=== PATIENT | female | born 1985 | race Caucasian/White ===

== ENCOUNTER 2022-09-21 21:15 | Emergency (ER) | payer OTHER ==
[2022-09-22] MEDS ORDERED: KETOROLAC 30 MG/ML INJ ONE (00:22)
--- NOTE | 2022-09-22 00:33 | ER ---
Nurse's Notes [facility] Name: Eneida Lucio Age: 36 yrs Sex: Female : 1985 Arrival Date: 09/21/2022 Time: 21:15 Bed 3 Private MD: Diagnosis: Pain in right shoulder Presentation: 09/21 21:56 Chief complaint: Patient states: i hurt my right shoulder about 2 years ago and have lg3 had issues ever since. i was at work and hurt it again yesterday while moving boxes. complaints of right shoulder pain. Coronavirus screen: Client denies travel out of the [place] in the last 14 days. At this time, the client does not indicate any symptoms associated with coronavirus-19. Ebola Screen: No symptoms or risks identified at this time. Initial Sepsis Screen: Does the patient meet any 2 criteria? No. Patient's initial sepsis screen is negative. Does the patient have a suspected source of infection? No. Patient's initial sepsis screen is negative. Risk Assessment: Do you want to hurt yourself or someone else? Patient reports no desire to harm self or others. Onset of symptoms was September 20, 2022. 21:56 Method Of Arrival: Ambulatory lg3 21:56 Acuity: FELIX 4 lg3 Triage Assessment: 21:59 General: Appears in no apparent distress. uncomfortable, Behavior is calm, cooperative. lg3 Pain: Complains of pain in right shoulder. EENT: No deficits noted. No signs and/or symptoms were reported regarding the EENT system. Neuro: No deficits noted. Garcia Agitation-Sedation Scale (RASS): 0 - Alert and Calm Level of Consciousness is awake, alert, obeys commands, Oriented to person, place, time, situation. Cardiovascular: No deficits noted. Denies chest pain, shortness of breath, Capillary refill < 3 seconds Clubbing of nail beds is absent JVD is absent Patient's skin is warm and dry. Respiratory: No deficits noted. Airway is patent Respiratory effort is even, unlabored, Respiratory pattern is regular, symmetrical. GI: No deficits noted. No signs and/or symptoms were reported involving the gastrointestinal system. : No deficits noted. No signs and/or symptoms were reported regarding the genitourinary system. Derm: No deficits noted. No signs and/or symptoms reported regarding the dermatologic system. Skin is intact, is healthy with good turgor, Skin is dry, Skin is normal, Skin temperature is warm. Musculoskeletal: Circulation, motion, and sensation intact. Range of motion: limited in right shoulder Reports pain in right shoulder. 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 - Social history:: Smoking status: Patient denies any tobacco usage or history of. Patient/guardian denies using alcohol, street drugs. Screenin/02 00:43 [facility] ED Fall Risk Assessment (Adult) History of falling in the last 3 months, jb4 including since admission No falls in past 3 months (0 pts) Confusion or Disorientation No (0 pts) Score/Fall Risk Level 0 - 2 = Low Risk Oriented to surroundings, Maintained a safe environment. Abuse screen: Denies threats or abuse. Nutritional screening: No deficits noted. Tuberculosis screening: No symptoms or risk factors identified. Assessment: 00:43 General: Appears in no apparent distress. comfortable, Behavior is calm, cooperative, jb4 appropriate for age. Pain: Complains of pain in right shoulder Pain does not radiate. Pain currently is 6 out of 10 on a pain scale. Neuro: Level of Consciousness is awake, alert, obeys commands, Oriented to person, place, time, situation. Cardiovascular: Patient's skin is warm and dry. Respiratory: Airway is patent Respiratory effort is even, unlabored, Respiratory pattern is regular, symmetrical. GI: No signs and/or symptoms were reported involving the gastrointestinal system. : No signs and/or symptoms were reported regarding the genitourinary system. EENT: No signs and/or symptoms were reported regarding the EENT system. Derm: Skin is intact, Skin is pink, warm \T\ dry. Musculoskeletal: Circulation, motion, and sensation intact. Range of motion: intact in all extremities. Vital Signs: 09/21 21:56 BP 121 / 88; Pulse 64; Resp 17 S; Temp 98.8(O); Pulse Ox 100% ; Weight 88.9 kg (R); lg3 Height 5 ft. 6 in. (R); 21:56 Body Mass Index 31.63 (88.90 kg, 167.64 cm) lg3 ED Course: 21:22 Patient arrived in ED. jj6 21:54 Brijesh España PA is PHCP. cp 21:54 Brijesh Henriquez MD is Attending Physician. cp 21:59 Triage completed. lg3 21:59 Arm band placed on left wrist. lg3 23:25 Brijesh España PA is PHCP. cp 23:25 Brijesh Henriquez MD is Attending Physician. cp 09/22 00:18 Blaze Dumont, RN is Primary Nurse. jb4 00:32 Nathan Parada MD is Referral Physician. cp 00:43 Patient has correct armband on for positive identification. Bed in low position. Call jb4 light in reach. Side rails up X 1. 00:43 No provider procedures requiring assistance completed. Patient did not have IV access jb4 during this emergency room visit. 00:50 XRAY Shoulder RIGHT 2 view In Process Unspecified. EDMS Administered Medications: 00:18 Drug: Ketorolac IM 30 mg Route: IM; Site: right gluteus; jb4 Medication: 00:43 VIS not applicable for this client. jb4 Outcome: 00:33 Discharge ordered by . cp 00:43 Discharged to home ambulatory. jb4 00:43 Condition: stable 00:43 Discharge instructions given to patient, Instructed on discharge instructions, follow up and referral plans. no drinking with medication, no driving heavy equipment, medication usage, Demonstrated understanding of instructions, follow-up care, medications, Prescriptions given X 2. 00:45 Patient left the ED. jb4 Signatures: Dispatcher [employer] EDMS Brijesh España PA PA cp Blaze Dumont, RN RN jb4 Cheyenne Leroy, KARYNA RN lg3 Shabnam Rod jj6 Corrections: (The following items were deleted from the chart) 09/21 22:00 21:59 Allergies: No Known Allergies; lg3 lg3
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
[2022-09-22 02:01] VITALS: BP 121/88; TEMP 98.8; O2SAT 100
--- NOTE | 2022-09-22 12:26 | RAD REPORT ---
EXAM DESCRIPTION: RAD - Shoulder Right 2 View - 09/22/2022 12:48 am CLINICAL HISTORY: The patient is 36 years old and is Female; PAIN TECHNIQUE: Frontal internal and external rotation views of the right shoulder. . COMPARISON: No relevant prior studies available. FINDINGS: BONES/JOINTS: Unremarkable. No acute fracture. No dislocation. SOFT TISSUES: Unremarkable. IMPRESSION: Unremarkable right shoulder x-rays. Electronically signed by: Jaydon Rocha MD 09/22/2022 1:26 AM CDT Due to temporary technical issues with the PACS/Fluency reporting system, reports are being signed by the in house radiologist without review as a courtesy to ensure prompt reporting. The interpreting r adiologist is fully responsible for the content of the report.
== END 2022-09-22 00:45 | disposition home or self-care (01) ==
LOC: ER 21:15
DX: M25.511 Pain in right shoulder (principal); Z88.1 Allergy status to other antibiotic agents
CPT/HCPCS: 96372; 99284

== ENCOUNTER 2022-11-28 08:59 | Emergency (ER) | payer OTHER ==
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
[2022-11-28 09:55] VITALS: BP 122/86; TEMP 98.1; O2SAT 98
== END 2022-11-28 09:50 | disposition home or self-care (01) ==
LOC: ER 08:59
PROC: 0W930ZZ Drainage of Oral Cavity and Throat, Open Approach (ICD-10-PCS; principal; 2022-11-28)
DX: K12.2 Cellulitis and abscess of mouth (principal); Z88.1 Allergy status to other antibiotic agents
CPT/HCPCS: 99283

== ENCOUNTER 2023-12-16 12:42 | Emergency (ER) | payer OTHER, SELFPAY ==
[2023-12-16 15:46] LABS: Absolute Eosinophils 0.1 K/uL (0-0.5); Absolute Lymphocytes (CBC) 1.7 K/uL (0.7-4.9); Absolute Monocytes 0.5 K/uL (0.1-1.3); Absolute Neutrophil 4.7 K/uL (1.8-8.0); Basophils % 0.5 % (0-1.3); Eosinophils % 1.6 % (0-4.4); Hematocrit 43.9 % (36.0-45.0); Hemoglobin 14.6 g/dL (12.0-15.0); Lymphocytes % 24.2 % (15.3-44.8); MCHC 33.2 g/dL (32.0-36.0); MCV 87.4 fL (80-100); Monocytes % 7.6 % (3.3-12.3); Neutrophils % 66.1 % (41.7-73.7); Nucleated Red Blood Cells % 0.2 % (0-0); Platelets 214 thou/uL (152-406); RBC Red Blood Cell Count 5.02 M/uL (3.86-4.86)
[2023-12-16 15:51] LABS: PT Prothrombin Time 11.2 SECONDS (9.4-12.5); PTT, Activated Partial Thromb 35.3 SECONDS (24.3-36.9)
[2023-12-16 16:01] LABS: Albumin 4.6 g/dL (3.4-5.0); Albumin/Globulin Ratio 1.1 (1.1-1.8); Anion Gap 10.6 mEq/L (5.0-15.0); Bilirubin Total 0.4 mg/dL (0.2-1.0); Globulin 4.1 g/dL (2.3-3.5); Potassium 3.6 mEq/L (3.5-5.1); Protein, Total 8.7 g/dL (6.4-8.2)
[2023-12-16] MEDS ORDERED: dexAMETHasone 10 MG/ML VIAL ONE (17:12)
--- NOTE | 2023-12-16 17:39 | RAD REPORT ---
EXAM DESCRIPTION: CT - CTFBWCON CLINICAL HISTORY: right jaw swelling COMPARISON: No comparisonsNo comparisons TECHNIQUE: Axial thin cut CT images of the face were obtained following intravenous administration o f iodinated contrast, with sagittal and coronal reconstruction images. All CT scans are performed using dose optimization technique as appropriate and may include automated exposure control or mA/KV adjustment according to patient size. FINDINGS: Mild soft tissue swelling along the right buccal mucosal space. Mild overlying buckled/pre malar subcutaneous fat stranding. No appreciable subperiosteal abscess. Scattered carious changes. Small periapical collections along the right maxillary first premolar and posterior-most molar roots. No acute facial bone fracture is seen.The mandible is intact. The globes and orbital contents are grossly unremarkable.The paranasal sinuses and mastoids are clear . IMPRESSION: Small periapical collections along the roots of the right maxillary first premolar and p osterior most molar. Overlying soft tissue swelling involving the buccal mucosal space and subcutaneous soft tissues, sugg esting cellulitis.
[2023-12-16] MEDS ORDERED: CIPROFLOXACIN 400mg IV 0 MG/0 ML BAG IV ONE (18:19)
[2023-12-16] MEDS ORDERED: CLINDAMYCIN 900MG/D5W 900 MG/50 ML IVPB IV ONE (18:20)
--- NOTE | 2023-12-16 19:03 | EDPHYS ---
Physician Documentation [facility] Name: Eneida Lucio Age: 38 yrs Sex: Female : 1985 Arrival Date: 12/16/2023 Time: 12:42 Bed 20 Private MD: ED Physician Ree Rosa HPI: 12/15 15:00 This 38 yrs old Female presents to ER via Ambulatory with complaints of Facial Swelling.cp 15:00 The patient or guardian reports left side facial swelling. cp 15:00 Onset: The symptoms/episode began/occurred this past Sunday. cp 15:00 Associated signs and symptoms: Pertinent negatives: headache, neck pain, fever, tooth cp pain. Severity of symptoms: in the emergency department the symptoms are actually worse, reports she has been taking prescribed Clindamycin for past 2 days. 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 - Infectious Disease History:: Denies. - Social history:: Smoking status: Patient denies any tobacco usage or history of. ROS: 15:05 Constitutional: Negative for body aches, chills, fever, poor PO intake, cp 15:05 ENT: Negative for drainage from ear(s), ear pain, dental pain, cp 15:05 Cardiovascular: Negative for chest pain, 15:05 Respiratory: Negative for cough, shortness of breath, 15:05 Abdomen/GI: Negative for abdominal pain, vomiting, diarrhea, constipation, 15:05 Skin: Positive for swelling left side of face, 15:05 Neuro: Negative for altered mental status, dizziness, headache, weakness, 15:05 All other systems are negative, Exam: 15:10 Constitutional: The patient appears in no acute distress, alert, awake, non-toxic, well cp developed, well nourished, 15:10 Head/face: Noted is swelling, that is moderate, of the right jaw, of the mild swelling cp extending to left lateral nose and infraorbital area of left eye, 15:10 Eyes: Pupils: equal, round, and reactive to light and accomodation, Extraocular movements: intact throughout, Conjunctiva: normal, no exudate, no injection, Sclera: no appreciated abnormality, Lids and lashes: appear normal, bilaterally, 15:10 ENT: External ear(s): are unremarkable, Ear canal(s): are normal, clear, TM's: bulging, bilaterally, Nose: External nose: no obvious acute abnormality, Mouth: Lips: moist, Oral mucosa: pink and intact, moist, Posterior pharynx: Airway: no evidence of obstruction, patent, swelling, is not appreciated, erythema, is not appreciated, Dental exam: dental caries, specifically in the right lower jaw, fractured teeth are noted, specifically the lower right second molar (#31), gum swelling, not appreciated, pain, is not appreciated, Voice: is normal, 15:10 Neck: ROM/movement: is normal, is supple, without pain, no range of motions cp limitations, no nuchal rigidity, 15:10 Chest/axilla: Inspection: normal, 15:10 Cardiovascular: Rate: normal, Rhythm: regular, 15:10 Respiratory: the patient does not display signs of respiratory distress, Respirations: normal, no use of accessory muscles, no retractions, labored breathing, is not present, Breath sounds: are clear throughout, no decreased breath sounds, no stridor, no wheezing, 15:10 Abdomen/GI: Inspection: abdomen appears normal, 15:10 Skin: no rash present. 15:10 Neuro: Orientation: to person, place \T\ time. Mentation: is normal, Motor: moves all fours, strength is normal, Sensation: is normal, Vital Signs: 13:15 BP 128 / 82; Pulse 87; Resp 18 S; Temp 97.8(TE); Pulse Ox 99% on R/A; Weight 89.36 kg aa5 (R); Height 5 ft. 5 in. (R); 16:00 BP 118 / 75; Pulse 78; Resp 16; Pulse Ox 100% on R/A; me1 17:00 BP 113 / 77; Pulse 78; Resp 19; Pulse Ox 100% on R/A; me1 18:00 BP 119 / 85; Pulse 82; Resp 18; Pulse Ox 100% on R/A; me1 18:00 BP 125 / 89; Pulse 95; Resp 16; Temp 98.4; Pulse Ox 100% on R/A; me1 13:15 Body Mass Index 32.78 (89.36 kg, 165.1 cm) aa5 MDM: 13:03 Patient medically screened. 19:02 Data reviewed: vital signs, nurses notes, lab test result(s), radiologic studies, CT cp scan. 19:02 Differential diagnosis: sepsis, dental abscess, cellulitis. I considered the following cp discharge prescriptions or medication management in the emergency department Medications were administered in the Emergency Department. See MAR. Counseling: I had a detailed discussion with the patient and/or guardian regarding the historical points, exam findings, and any diagnostic results supporting the discharge/admit diagnosis, lab results, radiology results. Refusal of service: The patient/guardian displays adequate decision making capability and despite a detailed discussion of alternatives, benefits, risks, and consequences refuses: Admission to the hospital for further work-up and treatment, or transfer for maxillary facial consult at this time due to issue with children. 12/15 14:53 Order name: Blood Culture Adult (2) 12/15 14:53 Order name: CBC with Diff; Complete Time: 16:42 12/15 14:53 Order name: CMP; Complete Time: 16:42 12/15 14:53 Order name: Lactate w/ 2H reflex if indic.; Complete Time: 16:42 12/15 14:53 Order name: Protime (+inr); Complete Time: 16:42 12/15 14:53 Order name: Ptt, Activated; Complete Time: 16:42 12/15 14:53 Order name: CT Facial Bones W/ Con \T\ Mpr; Complete Time: 18:06 12/15 18:06 Interpretation: Report reviewed. 12/15 14:53 Order name: EKG; Complete Time: 14:53 12/15 14:53 Order name: Accucheck; Complete Time: 15:43 12/15 14:53 Order name: Cardiac monitoring; Complete Time: 16:12 12/15 14:53 Order name: EKG - Nurse/Tech; Complete Time: 16:12 12/15 14:53 Order name: IV Saline Lock - Large Bore; Complete Time: 15:43 12/15 14:53 Order name: Labs collected and sent; Complete Time: 15:43 12/15 14:53 Order name: O2 Per Protocol; Complete Time: 15:43 cp 12/15 14:53 Order name: O2 Sat Monitoring; Complete Time: 15:43 cp 12/15 14:53 Order name: Vital Signs; Complete Time: 15:43 cp Administered Medications: 17:15 Drug: Dexamethasone IVP 10 mg IVP once; (not to exceed 40 mg) Route: IVP; Site: right me1 antecubital; 18:10 Follow up: Response: No adverse reaction me1 18:24 Drug: Clindamycin IVPB 900 mg IVPB once over 30 mins; (mix in 50 mL) Route: IVPB; me1 Infused Over: 30 mins; Site: right antecubital; 18:49 Follow up: Response: No adverse reaction; IV Status: Completed infusion; IV Intake: [id number] 19:22 Drug: metroNIDAZOLE PO 500 mg PO once Route: PO; me1 19:22 Follow up: Response: No adverse reaction me1 Disposition Summary: 12/16/23 19:03 Discharge Ordered Notes: Location: Home cp Problem: new cp Symptoms: have improved cp Condition: Stable cp Diagnosis - Cellulitis of face cp - Disorder of teeth and supporting structures, unspecified - multiple periapical cp abscess teeth of right lower jaw Followup: cp - With: Elliot Willis DDS - When: 2 - 3 days - Reason: Recheck today's complaints Discharge Instructions: - Discharge Summary Sheet cp - Cellulitis, Adult cp - Dental Abscess cp Forms: - Medication Reconciliation Form cp - Antibiotic Education cp - Prescription Opioid Use cp - Patient Portal Instructions cp - Leadership Thank You Letter cp Prescriptions: - Ibuprofen 800 mg Oral Tablet - take 1 tablet ORAL route every 8 hours As needed take with food; 30 tablet; cp Refills: 0, Product Selection Permitted - Metronidazole 500 mg Oral Tablet - take 1 tablet ORAL route every 8 hours; 30 tablet; Refills: 0, Product cp Selection Permitted Signatures: Dispatcher [employer] Susan Mayer RN RN aa5 Brijesh España PA PA cp Pao Godoy RN RN me1 Corrections: (The following items were deleted from the chart) 14:54 14:53 BLOOD CULTURE*+BA.LAB.BRZ ordered. EDMS EDMS 14:54 14:53 CBC+H.LAB.BRZ ordered. EDMS EDMS 14:54 14:53 COMPREHENSIVE METABOLIC PANEL+C.LAB.BRZ ordered. EDMS EDMS 14:54 14:53 LACTATE+C.LAB.BRZ ordered. EDMS EDMS 14:54 14:53 PROTIME (+INR)+COAG.LAB.BRZ ordered. EDMS EDMS 14:54 14:53 PTT, ACTIVATED+COAG.LAB.BRZ ordered. EDMS EDMS
--- NOTE | 2023-12-16 19:03 | ER ---
Nurse's Notes [facility] Name: Eneida Lucio Age: 38 yrs Sex: Female : 1985 Arrival Date: 12/16/2023 Time: 12:42 Bed 20 Private MD: Diagnosis: Cellulitis of face;Disorder of teeth and supporting structures, unspecified-multiple periapical abscess teeth of right lower jaw Presentation: 12/15 13:15 Chief complaint: Patient states: "I was diagnosed with cellulitis to my face on Sunday aa5 and I've been taking Clindamycin but the swelling and the redness is worse". Coronavirus screen: At this time, the client does not indicate any symptoms associated with coronavirus-19. Ebola Screen: Patient denies travel to an Ebola-affected area in the 21 days before illness onset. Initial Sepsis Screen: Does the patient meet any 2 criteria? No. Patient's initial sepsis screen is negative. Does the patient have a suspected source of infection? No. Patient's initial sepsis screen is negative. Risk Assessment: Do you want to hurt yourself or someone else? Patient reports no desire to harm self or others. Onset of symptoms was November 2023. 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 - Infectious Disease History:: Denies. - Social history:: Smoking status: Patient denies any tobacco usage or history of. Screenin:43 [facility] ED Fall Risk Assessment (Adult) History of falling in the last 3 months, me1 including since admission No falls in past 3 months (0 pts) Confusion or Disorientation No (0 pts) Intoxicated or Sedated No (0 pts) Impaired Gait No (0 pts) Mobility Assist Device Used No (0 pt) Altered Elimination No (0 pt) Score/Fall Risk Level 0 - 2 = Low Risk Maintained a safe environment, Provided non-skid footwear, Hourly rounding (assess needs \\T\\ fall precautionary measures) done. Abuse screen: Denies threats or abuse. Nutritional screening: No deficits noted. Tuberculosis screening: No symptoms or risk factors identified. Assessment: 15:43 General: Appears uncomfortable, well groomed, well developed, well nourished, Behavior me1 is calm, cooperative, appropriate for age, Reports "I was diagnosed with cellulitis to my face on Sunday and I've been taking Clindamycin but the swelling and the redness is worse". Pain: Complains of pain in right cheek and right jaw Pain does not radiate. Pain currently is 5 out of 10 on a pain scale. Quality of pain is described as throbbing, Pain began gradually, 2-3 days ago. Is continuous. Neuro: Level of Consciousness is awake, alert, obeys commands, Oriented to person, place, time, situation, Appropriate for age. Cardiovascular: Patient's skin is warm and dry. Respiratory: Airway is patent Trachea midline Respiratory effort is even, unlabored, Respiratory pattern is regular, symmetrical. GI: No signs and/or symptoms were reported involving the gastrointestinal system. : No signs and/or symptoms were reported regarding the genitourinary system. EENT: No signs and/or symptoms were reported regarding the EENT system. Derm: Skin is intact, is healthy with good turgor, Skin is pink, warm \\T\\ dry. edema to right face. Musculoskeletal: No signs and/or symptoms reported regarding the musculoskeletal system. Vital Signs: 13:15 BP 128 / 82; Pulse 87; Resp 18 S; Temp 97.8(TE); Pulse Ox 99% on R/A; Weight 89.36 kg aa5 (R); Height 5 ft. 5 in. (R); 16:00 BP 118 / 75; Pulse 78; Resp 16; Pulse Ox 100% on R/A; me1 17:00 BP 113 / 77; Pulse 78; Resp 19; Pulse Ox 100% on R/A; me1 18:00 BP 119 / 85; Pulse 82; Resp 18; Pulse Ox 100% on R/A; me1 18:00 BP 125 / 89; Pulse 95; Resp 16; Temp 98.4; Pulse Ox 100% on R/A; me1 13:15 Body Mass Index 32.78 (89.36 kg, 165.1 cm) aa5 ED Course: 12:45 Patient arrived in ED. ra3 13:03 Brijesh España PA is PHCP. cp 13:03 Ree Rosa MD is Attending Physician. cp 13:15 Arm band placed on. aa5 13:16 Triage completed. aa5 15:05 Pao Godoy, RN is Primary Nurse. me1 15:12 First set of blood cultures drawn by me. cc6 15:19 Initial lab(s) drawn, by me, sent to lab. Inserted saline lock: 20 gauge in right cc6 antecubital area, using aseptic technique. Blood collected. Flushed with 10 mL NS. 15:43 Patient has correct armband on for positive identification. Bed in low position. Call me1 light in reach. Side rails up X2. Provided Education on: POC. Verbalized understanding. . Client placed on continuous cardiac and pulse oximetry monitoring. NIBP monitoring applied. child care counselor on. Pulse ox on. NIBP on. 15:43 CBC with Diff Sent. me1 15:43 CMP Sent. me1 15:43 Lactate w/ 2H reflex if indic. Sent. me1 15:43 Protime (+inr) Sent. me1 15:43 Ptt, Activated Sent. me1 15:43 No provider procedures requiring assistance completed. me1 15:52 Second set of blood cultures drawn by me. cc6 16:12 EKG done, by ED staff, reviewed by Brijesh KAUFFMAN. cc6 16:40 CT Facial Bones W/ Con \\T\\ Mpr In Process Unspecified. EDMS 19:02 Elliot Willis DDS is Referral Physician. cp 19:24 IV discontinued, intact, bleeding controlled, No redness/swelling at site. Pressure me1 dressing applied. Administered Medications: 17:15 Drug: Dexamethasone IVP 10 mg IVP once; (not to exceed 40 mg) Route: IVP; Site: right me1 antecubital; 18:10 Follow up: Response: No adverse reaction me1 18:24 Drug: Clindamycin IVPB 900 mg IVPB once over 30 mins; (mix in 50 mL) Route: IVPB; me1 Infused Over: 30 mins; Site: right antecubital; 18:49 Follow up: Response: No adverse reaction; IV Status: Completed infusion; IV Intake: [id number] 19:22 Drug: metroNIDAZOLE PO 500 mg PO once Route: PO; me1 19:22 Follow up: Response: No adverse reaction me1 Medication: 15:43 VIS not applicable for this client. me1 Intake: 18:49 IV: 50ml; Total: 50ml. me1 Outcome: 19:03 Discharge ordered by MD. cp 19:24 Discharged to home ambulatory, mt1 19:24 Condition: stable 19:24 Discharge instructions given to patient, Instructed on discharge instructions, follow up and referral plans. medication usage, Demonstrated understanding of instructions, follow-up care, medications, Prescriptions given X 2, 19:24 Patient left the ED. me1 Signatures: Dispatcher [employer] EDMS Susan Almodovar RN RN aa5 Brijesh España PA PA Pao Lyon RN RN me1 Kelly Álvarez 3 Lucy Gauthier cc6 Corrections: (The following items were deleted from the chart) 15:43 13:15 Chief complaint: Patient states: "I was diagnosed with cellulitis to my face on me1 Sunday and I've been taking Clindamycin but the swelling and the redness is worse" aa5
[2023-12-16] MEDS ORDERED: metroNIDAZOLE 500 MG TABLET ONE (19:15)
[2023-12-16 19:52] VITALS: O2SAT 100
[2023-12-16 19:56] VITALS: BP 125/89; TEMP 98.4
[2023-12-16] MEDS ORDERED: ACETAMINOPHEN 325 MG TABLET PO PRN (21:44)
[2023-12-16] MEDS ORDERED: ONDANSETRON 4 MG/2 ML VIAL IV PRN (21:44)
--- NOTE | 2023-12-16 21:44 | P.HP ---
Certification for Inpatient Patient admitted to: Inpatient With expected LOS: >2 Midnights Practitioner: I am a practitioner with admitting privileges, knowledge of patient current condition, hospital course, and medical plan of care. Services: Services provided to patient in accordance with Admission requirements found in Title 42 Section 412.3 of the Code of Federal Regulations Patient History Date of Service: 12/17/23 Reason for admission: facial cellulitis History of Present Illness: 38 yo - Past Medical/Surgical History Past Medical History: Reviewed- Non-Contributory Past Surgical History: Reviewed- Non-Contributory - Family History Family History: Reviewed- Non-Contributory - Social History Smoking Status: Never smoker Physical Examination - Vital Signs Temperature: 98.4 F Blood Pressure: 125/89 Pulse: 95 Respirations: 16 - Physical Exam General: Alert, In no apparent distress, Oriented x3 - Studies Laboratory Data (last 24 hrs) 12/16/23 12/16/23 12/16/23 15:12 15:12 15:12 WBC 7.20 Hgb 14.6 Hct 43.9 Plt Count 214 PT 11.2 INR 1.00 APTT 35.3 Sodium 138 Potassium 3.6 BUN 14 Creatinine 0.97 Glucose 95 Total Bilirubin 0.4 AST 16 ALT 30 Alkaline Phosphatase 91 Assessment and Plan - Advance Directives Does patient have a Living Will: No Does patient have a Durable POA for Healthcare: No
[2023-12-17] MEDS ORDERED: ENOXAPARIN 40 MG/0.4 ML SQ SCH ×2 (09:00)
--- NOTE | 2023-12-17 10:00 | EKG ---
Test Date: 2023-12-16 Test Time: 16:06:51 Sales Correspondence Clerk: SALLY MEASUREMENT RESULTS: Intervals: Rate: 83 IA: 142 QRSD: 94 QT: 390 QTc: 458 Reading: P: 59 IA: 142 QRS: 46 T: 20 INTERPRETIVE STATEMENTS: Normal sinus rhythm ST & T wave abnormality, consider inferior ischemia Abnormal ECG No previous ECG available for comparison Electronically Signed On 12-17-23 10:00:08 CDT by Marc Cabello
--- NOTE | 2023-12-18 12:44 | EKG ---
Test Date: 2023-12-16 Test Time: 16:07:33 Ladies Attendant: SALLY MEASUREMENT RESULTS: Intervals: Rate: 71 CT: 142 QRSD: 96 QT: 398 QTc: 432 [place]: P: 59 CT: 142 QRS: 43 T: 20 INTERPRETIVE STATEMENTS: Normal sinus rhythm Normal ECG Compared to ECG 12/16/2023 16:06:51 ST (T wave) deviation no longer present Possible ischemia no longer present Electronically Signed On 12-18-23 12:41:45 CDT by Marc Cabello
== END 2023-12-16 19:24 | disposition home or self-care (01) ==
LOC: ER 12:42
DX: L03.211 Cellulitis of face (principal); K04.7 Periapical abscess without sinus
CPT/HCPCS: 36415; 70487; 76377; 80053; 83605; 85025; 85610; 85730; 87040; 93005; 96365; 96375; 99285; J0744; J1100; Q9967

== ENCOUNTER 2023-12-16 20:37 | Inpatient (IN) | payer OTHER, SELFPAY ==
--- NOTE | 2023-12-16 21:42 | EDPHYS ---
Physician Documentation [facility] Name: Eneida Lucio Age: 38 yrs Sex: Female : 1985 Arrival Date: 12/16/2023 Time: 20:37 Bed 15 Private MD: ED Physician Angel Edwards HPI: 12/15 21:25 This 38 yrs old Female presents to ER via Ambulatory with complaints of Toothache. rt 21:25 Patient presents to the ED with a right-sided toothache, right-sided facial swelling. rt States that the swelling has been worsening despite being on oral clindamycin for several days. Was seen earlier today, told that she needed transfer for periapical abscess. Denies other acute complaints at this time, symptoms are moderate in severity, no other aggravating elevating factors.. 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 - Infectious Disease History:: Denies. - Social history:: Smoking status: Patient denies any tobacco usage or history of. - Family history:: not pertinent. ROS: 21:25 Constitutional: Negative for fever, chills, and weight loss, Cardiovascular: Negative rt for chest pain, palpitations, and edema, Respiratory: Negative for shortness of breath, cough, wheezing, and pleuritic chest pain, Abdomen/GI: Negative for abdominal pain, nausea, vomiting, diarrhea, and constipation, MS/Extremity: Negative for injury and deformity, Skin: Negative for injury, rash, and discoloration, 21:25 ENT: Positive for Dental pain, facial swelling, Exam: 21:25 Constitutional: This is a well developed, well nourished patient who is awake, alert, rt and in no acute distress. Chest/axilla: Normal chest wall appearance and motion. Nontender with no deformity. No lesions are appreciated. Cardiovascular: Regular rate and rhythm with a normal S1 and S2. No gallops, murmurs, or rubs. Normal PMI, no JVD. No pulse deficits. Respiratory: Lungs have equal breath sounds bilaterally, clear to auscultation and percussion. No rales, rhonchi or wheezes noted. No increased work of breathing, no retractions or nasal flaring. Abdomen/GI: Soft, non-tender, with normal bowel sounds. No distension or tympany. No guarding or rebound. No evidence of tenderness throughout. 21:25 ENT: Right-sided facial swelling, multiple dental caries noted, no drainable abscess. Vital Signs: 20:51 Pulse 99; Resp 18; Temp 97; Pulse Ox 99% ; Weight 89.36 kg; Height 5 ft. 5 in. ; Pain bm8 3/10; 23:15 BP 124 / 71; Pulse 88; Resp 16; Pulse Ox 99% on R/A; pc2 20:51 Body Mass Index 32.78 (89.36 kg, 165.1 cm) bm8 20:51 Pain Scale: Adult bm8 MDM: 21:07 Patient medically screened. rt 21:42 Differential diagnosis: dental caries, dental abscess, Facial cellulitis. Data rt reviewed: vital signs, nurses notes, lab test result(s), radiologic studies. Consideration of Admission/Observation Patient was admitted/placed on observation. I considered the following discharge prescriptions or medication management in the emergency department Medications were administered in the Emergency Department. See MAR. Counseling: I had a detailed discussion with the patient and/or guardian regarding the historical points, exam findings, and any diagnostic results supporting the discharge/admit diagnosis, lab results, radiology results, the need for further work-up and treatment in the hospital. 12/15 22:45 Order name: Urinalysis w/ reflexes EDMS Administered Medications: No medications were administered Disposition Summary: 12/16/23 21:42 Hospitalization Ordered Notes: Hospitalization Status: Observation rt Provider: Osito Isabel rt Condition: Stable rt Problem: an ongoing problem rt Symptoms: are unchanged rt Bed/Room Type: Standard rt Location: Telemetry/MedSurg (observation)(12/17/23 16:09) ap3 Room Assignment: 207(12/17/23 16:09) ap3 Diagnosis - Facial cellulitis, failed outpatient therapy rt Forms: - Medication Reconciliation Form rt - SBAR form rt - Leadership Thank You Letter rt Signatures: Dispatcher [facility] Aida Zapata Amanda RN RN ap3 Sabina Arango RN RN vc1 Angel Edwards MD MD rt Monster Pittman RN RN bm8 Corrections: (The following items were deleted from the chart) 23:10 21:42 rt sp 23:58 21:42 Telemetry/MedSurg (observation) rt vc1 58 23:10 [facility] sp vc1 12/16 16:09 12/15 23:58 [facility] ER HOLD vc1 ap3 12/16 16:09 12/15 23:58 ERHOLD- vc1 ap3
--- NOTE | 2023-12-16 21:42 | ER ---
Nurse's Notes [facility] Name: Eneida Lucio Age: 38 yrs Sex: Female : 1985 Arrival Date: 12/16/2023 Time: 20:37 Bed 15 Private MD: Diagnosis: Facial cellulitis, failed outpatient therapy Presentation: 12/15 20:51 Chief complaint: Patient states: i was here earlier to day with dental abscess but i bm8 had to go home and make sure my kids were taken of care because i was told they were going to trasnfer me somewhere. Coronavirus screen: At this time, the client does not indicate any symptoms associated with coronavirus-19. Ebola Screen: Patient negative for fever greater than or equal to 101.5 degrees Fahrenheit, and additional compatible Ebola Virus Disease symptoms Patient denies exposure to infectious person. Patient denies travel to an Ebola-affected area in the 21 days before illness onset. No symptoms or risks identified at this time. Initial Sepsis Screen: Does the patient meet any 2 criteria? No. Patient's initial sepsis screen is negative. Does the patient have a suspected source of infection? No. Patient's initial sepsis screen is negative. Risk Assessment: Do you want to hurt yourself or someone else? Patient reports no desire to harm self or others. Onset of symptoms was December 14, 2023. 20:51 Method Of Arrival: Ambulatory bm8 20:51 Acuity: FELIX 3 bm8 Triage Assessment: 20:53 General: Appears in no apparent distress. comfortable, Behavior is calm, cooperative, bm8 appropriate for age. Pain: Complains of pain in face Pain currently is 3 out of 10 on a pain scale. Quality of pain is described as aching, crampy. EENT: Poor dentition noted. Reports pain in right cheek, left cheek, right jaw and left jaw swelling to bilateral face noted. Neuro: No deficits noted. Level of Consciousness is awake, alert, obeys commands, Oriented to person, place, time, situation, Appropriate for age. Cardiovascular: No deficits noted. Respiratory: No deficits noted. GI: No signs and/or symptoms were reported involving the gastrointestinal system. : No signs and/or symptoms were reported regarding the genitourinary system. Derm: No signs and/or symptoms reported regarding the dermatologic system. Musculoskeletal: No signs and/or symptoms reported regarding the musculoskeletal system. 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 - Infectious Disease History:: Denies. - Social history:: Smoking status: Patient denies any tobacco usage or history of. - Family history:: not pertinent. Screenin:06 [facility] ED Fall Risk Assessment (Adult) History of falling in the last 3 months, pc2 including since admission No falls in past 3 months (0 pts) Confusion or Disorientation No (0 pts) Intoxicated or Sedated No (0 pts) Impaired Gait No (0 pts) Mobility Assist Device Used No (0 pt) Altered Elimination No (0 pt) Score/Fall Risk Level 0 - 2 = Low Risk Oriented to surroundings, Maintained a safe environment, Hourly rounding (assess needs \\T\\ fall precautionary measures) done. Abuse screen: Denies threats or abuse. Denies injuries from another. Nutritional screening: No deficits noted. Tuberculosis screening: No symptoms or risk factors identified. Assessment: 21:23 General: Appears in no apparent distress. uncomfortable, well groomed, well developed, pc2 Behavior is calm, cooperative, appropriate for age. Pain: Complains of pain in right jaw Pain currently is 5 out of 10 on a pain scale. Quality of pain is described as gnawing, Pain began 2 days ago. Neuro: Level of Consciousness is awake, alert, obeys commands, Oriented to person, place, time, situation, Appropriate for age. Cardiovascular: Capillary refill < 3 seconds Patient's skin is warm and dry. Respiratory: Airway is patent Trachea midline Respiratory effort is even, unlabored, Respiratory pattern is regular, symmetrical, Breath sounds are clear Denies shortness of breath pain with respiration. GI: No signs and/or symptoms were reported involving the gastrointestinal system. : No signs and/or symptoms were reported regarding the genitourinary system. EENT: Oral mucosa is moist. reports diagnosed with multiple dental abscesses at the root on the right side. Derm: Skin is pink, warm \\T\\ dry. Musculoskeletal: No signs and/or symptoms reported regarding the musculoskeletal system. 22:30 Reassessment: No changes from previously documented assessment. Patient and/or family pc2 updated on plan of care and expected duration. Pain level reassessed. 23:32 Reassessment: Patient appears in no apparent distress at this time. Patient and/or pc2 family updated on plan of care and expected duration. Pain level reassessed. Patient is alert, oriented x 3, equal unlabored respirations, skin warm/dry/pink. Vital Signs: 20:51 Pulse 99; Resp 18; Temp 97; Pulse Ox 99% ; Weight 89.36 kg; Height 5 ft. 5 in. ; Pain bm8 3/10; 23:15 BP 124 / 71; Pulse 88; Resp 16; Pulse Ox 99% on R/A; pc2 20:51 Body Mass Index 32.78 (89.36 kg, 165.1 cm) bm8 20:51 Pain Scale: Adult bm8 ED Course: 20:40 Patient arrived in ED. jj6 20:42 Angel Edwards MD is Attending Physician. rt 20:53 Triage completed. bm8 20:53 Arm band placed on right wrist. bm8 21:06 Lupis Machado, RN is Primary Nurse. pc2 21:07 Patient has correct armband on for positive identification. Provided Education on: POC pc2 and time frame. 21:26 No provider procedures requiring assistance completed. pc2 21:41 Osito Isabel MD is Hospitalizing Provider. rt 23:10 Inserted saline lock: 20 gauge in left antecubital area, using aseptic technique. pc2 Flushed with 10 mL NS. 12/16 02:00 Report received from KARYNA Muhammad and LupisRN. ha1 02:00 Patient admitted, IV remains in place. ha1 12:23 CM met with patient at the bedside in the ED exam room. Patient identified by name and ane . Demographic sheet reflected uninsured. Patient provided insurance card to CM. CM presented card to Patient Access. Tamiko in Patient Access ran insurance card and it returned "inactive" . CM returned insurance card and recommended patient reach out to insurance carrier. Ms. Lucio states she lives with her children in a 2 story home. Patient reports prior to admission, she performs ADLs independently and without physical limitations. Patient states she does not have HH, home oxygen, DME or other medical services at this time. Patient states her preferred plan is to return home upon discharge. She states transportation will be provided by her mother Sophie. CM team will continue to follow and coordinate care. Administered Medications: No medications were administered Medication: 12/15 21:07 VIS not applicable for this client. pc2 Outcome: 21:42 Decision to Hospitalize by Provider. rt 12/16 02:00 Admitted to ER Hold. Please see [facility] for further documentation. ha1 Condition: stable Instructed on the need for admit, Demonstrated understanding of instructions, 18:05 Patient left the ED. ph Signatures: Loreto Vallecillo, RN RN ph Shabnam Rod jj6 Concha North RN RN ha1 Angel Edwards MD MD rt Monster Pittman RN RN bm8 Lupis Machado, RN RN pc2 Sofia Ovalle RN RN gricel
[2023-12-16] MEDS ORDERED: ONDANSETRON 4 MG/2 ML VIAL IV PRN (22:41)
[2023-12-16] MEDS ORDERED: ACETAMINOPHEN 325 MG TABLET PO PRN (22:41)
[2023-12-16] MEDS ORDERED: MORPHINE 2 MG/ML SYR IV PRN (22:43)
--- NOTE | 2023-12-16 22:45 | P.HP ---
Certification for Inpatient Patient admitted to: Inpatient With expected LOS: >2 Midnights Practitioner: I am a practitioner with admitting privileges, knowledge of patient current condition, hospital course, and medical plan of care. Services: Services provided to patient in accordance with Admission requirements found in Title 42 Section 412.3 of the Code of Federal Regulations Patient History Date of Service: 12/16/23 Reason for admission: Facial swelling History of Present Illness: 38 yrs old Female with past medical history of bipolar disorder also has history of dental caries came to ER with toothache and swelling of the right side of the face which has been going on for the last few days and has been progressively getting worse. Patient states that pain is getting worse and has been used oral clindamycin without much help. Denies any fever or chills. No nausea vomiting or diarrhea. Denies any chest pain or shortness of breath. Patient had a CT which was consistent with periapical infection Patient was assessed in the ER and was admitted for further management Allergies amoxicillin [From Augmentin] Allergy (Verified 12/16/23 22:40) Anaphylaxis clavulanic acid [From Augmentin] Allergy (Verified 12/16/23 22:40) Anaphylaxis - Past Medical/Surgical History Past Medical History: Reviewed- Non-Contributory -: bipolar Past Surgical History: Reviewed- Non-Contributory - Family History Family History: Reviewed- Non-Contributory - Social History Smoking Status: Never smoker Review of Systems 10-point ROS is otherwise unremarkable Physical Examination - Physical Exam General: Alert, In no apparent distress, Oriented x3 HEENT: Atraumatic, Normocephalic, Other (Swelling , Right side of face ,Dental caries +) Neck: Supple, 2+ carotid pulse no bruit Respiratory: Clear to auscultation bilaterally, Normal air movement Cardiovascular: Normal pulses, Regular rate/rhythm, Normal S1 S2 Capillary refill: <2 Seconds Gastrointestinal: Soft and benign, W/out hepatosplenomegaly Musculoskeletal: No clubbing, No swelling Integumentary: No breakdown, No tenderness/swelling Neurological: Normal speech, Normal strength at 5/5 x4 extr, Cranial nerves 3-12 intact, Normal reflexes 2+ Lymphatics: No axilla or inguinal lymphadenopathy Assessment and Plan - Plan Facial cellulitis Started on IV clindamycin Pain control Will add on celecoxib CT findings noted Continue IV antibiotics Need outpatient follow-up with general surgery once better Bipolar disorder continue home medication GI/DVT prophylaxis Advanced directive full code Discharge Plan: Home Plan to discharge in: 48 Hours - Advance Directives Does patient have a Living Will: No Does patient have a Durable POA for Healthcare: No - Code Status/Comfort Care Code Status: Full Code Time Spent Managing Pts Care (In Minutes): 48
[2023-12-16 23:42] VITALS: BMI 32.7
[2023-12-17] MEDS: CLINDAMYCIN INJ 600 MG in NA CHLORIDE 0.9% 50 ML IV SCH (01:00)
[2023-12-17] MEDS: NA CHLORIDE 0.9% 1,000 ML IV SCH (01:35)
[2023-12-17] MEDS ORDERED: CLINDAMYCIN 600MG/D5W 50 ML IV ONE ×2 (01:45→08:11)
[2023-12-17] MEDS ORDERED: NA CHLORIDE 0.9% 1,000 ML ONE ×2 (01:45→13:21)
[2023-12-17] MEDS ORDERED: HYDROCODONE/APAP 5/325 MG TAB ONE (01:50)
[2023-12-17] MEDS: HYDROCODONE/APAP 5/325 MG TAB PO PRN (02:19)
[2023-12-17 07:23] LABS: Specific Gravity > 1.030 (1.005-1.030); Urine Bacteria None Seen /HPF (<20); Urine Bilirubin NEGATIVE (Negative); Urine Blood 1+ (Negative); Urine Clarity Extremely Turbid (Clear); Urine Color Yellow (Yellow); Urine Culture Reflex Order REFLEXED; Urine Glucose NEGATIVE (Negative); Urine Ketones 1+ (Negative); Urine Microscopic Reflex YN ORDER UMIC; Urine Mucus 4+ /HPF (None Seen); Urine Nitrite NEGATIVE (Negative); Urine Protein 1+ (Negative); Urine Urobilinogen Normal (Normal); Urine WBC 20-50 /HPF (<5); Urine pH 5.5 (5.0-7.0)
[2023-12-17] MEDS: ENOXAPARIN 40 MG/0.4 ML SQ SCH (07:56)
[2023-12-17] MEDS: CLINDAMYCIN 600MG/D5W 50 ML IV SCH (09:00)
[2023-12-17] MEDS ORDERED: DIPHENHYDRAMINE 50 MG/ML VIAL ONE (13:21)
[2023-12-17] MEDS ORDERED: CEFTRIAXONE 2000 MG/VIAL ONE (13:41)
[2023-12-17] MEDS ORDERED: NA CHLORIDE 0.9% 100 ML ONE (13:42)
[2023-12-17] MEDS ORDERED: METRONIDAZOLE 500mg IVPB 500 MG/100 ML BAG IV ONE (13:42)
--- NOTE | 2023-12-17 13:44 | P.PN ---
Subjective Date of Service: 12/17/23 Chief Complaint: Facial swelling Pt is resting comfortably in bed. She resports erythema on the right and left cheeks. It appears pt is allergic to clinda. Will sto clinda, give benadryl and start rocephin and flagyl. No other complaints. Review of Systems General: Unremarkable Eyes: Unremarkable ENT: Unremarkable Respiratory: Unremarkable Cardiovascular: Unremarkable Gastrointestinal: Unremarkable Genitourinary: Unremarkable Musculoskeletal: Unremarkable Integumentary: Other (erythema on cheeks) Neurological: Unremarkable Lymphatics: Unremarkable Physical Examination - Vital Signs Temperature: 97.9 F Blood Pressure: 118/85 Pulse: 85 Respirations: 18 Pulse Ox (%): 98 - Physical Exam General: Alert, In no apparent distress, Oriented x3 HEENT: Atraumatic, Normocephalic, PERRLA Neck: Supple, 2+ carotid pulse no bruit, JVD not distended Respiratory: Clear to auscultation bilaterally, Normal air movement Cardiovascular: No edema, Normal pulses, Regular rate/rhythm, Normal S1 S2 Capillary refill: <2 Seconds Gastrointestinal: Normal bowel sounds, Soft and benign, Non-distended Musculoskeletal: No clubbing, No swelling, No contractures Integumentary: No rashes, No breakdown, No significant lesion, Erythema Neurological: Normal gait, Normal speech, Normal strength at 5/5 x4 extr Lymphatics: No axilla or inguinal lymphadenopathy Assessment And Plan - Plan Facial Cellulitis: CT facial shows periapical infection. Pt denies any tooth ache. She seems to be allergic to clindamycin due to spreading of the erythema from the right cheek to the left cheek. Will stop clinda and start rocephin and flagyl. Will continue prn pain med and benadryl. Hypotension: Will continue IVF and monitor BP. DVT ppx: SCD Code: full
[2023-12-17] MEDS: CEFTRIAXONE 2,000 MG in NA CHLORIDE 0.9% 100 ML IV SCH (13:55)
[2023-12-17] MEDS: DIPHENHYDRAMINE 50 MG/ML VIAL IV SCH (13:55)
[2023-12-17] MEDS: METRONIDAZOLE 500mg IVPB 500 MG/100 ML BAG IV SCH (14:30)
[2023-12-17 23:54] VITALS: O2SAT 100
[2023-12-18] MEDS: SUMATRIPTAN SUCCI 50 MG TAB PO ONE (05:21)
[2023-12-18 07:08] LABS: Absolute Monocytes 0.5 K/uL (0.1-1.3); Absolute Neutrophil 3.1 K/uL (1.8-8.0); Basophils % 0.4 % (0-1.3); Eosinophils % 0.5 % (0-4.4); Hematocrit 36.9 % (36.0-45.0); Hemoglobin 12.3 g/dL (12.0-15.0); Lymphocytes % 35.8 % (15.3-44.8); MCH 29.4 pg (27.0-35.0); MCHC 33.3 g/dL (32.0-36.0); MCV 88.5 fL (80-100); MPV 10.3 fL (7.6-11.3); Monocytes % 9.4 % (3.3-12.3); Neutrophils % 53.9 % (41.7-73.7); Platelets 167 thou/uL (152-406); RBC Red Blood Cell Count 4.17 M/uL (3.86-4.86); Red Cell Distribution Width 14.1 % (12.1-15.2)
[2023-12-18 07:21] LABS: Anion Gap 7.7 mEq/L (5.0-15.0); Potassium 3.7 mEq/L (3.5-5.1)
[2023-12-18] MEDS: POTASSIUM CL SA 10 MEQ TAB PO ONE (08:23)
[2023-12-18 09:37] VITALS: BP 116/58; TEMP 97.7
--- NOTE | 2023-12-18 10:10 | P.DS ---
Admission Date: 12/16/23 Discharge Date: 12/18/23 Disposition: ROUTINE DISCHARGE Discharge Condition: GOOD Reason for Admission: Facial swelling Brief History of Present Illness: 38 yrs old Female with past medical history of bipolar disorder also has history of dental caries came to ER with toothache and swelling of the right side of the face which has been going on for the last few days and has been progressively getting worse. Patient states that pain is getting worse and has been used oral clindamycin without much help. Denies any fever or chills. No nausea vomiting or diarrhea. Denies any chest pain or shortness of breath. Patient had a CT which was consistent with periapical infection Patient was assessed in the ER and was admitted for further management Hospital Course: Pt is a 38 yo female with past medical history of bipolar disorder who presented with toothache and swelling of the right side of the face for a few days. It progressively worsened aand pt came to the ER for evaluation. On admission, CT facial showed periapical infection. We gave clindamycin but the facial cellulitis worsened and moved to the left side of her face. We gave benadryl and sswitch clindamycin to rocephina nd flagyl. Pt felt better by the next day and requested to be discharged. We discharged her with cefdinir and flagyl for 8 more days. Pt was advised to take prn benadryl for itching and also avoid driving while taking benadryl. She was advised to follow up with a dentist within 1 week. Pt was in NAD prior to discharge Vital Signs/Physical Exam: Temp Pulse Resp BP Pulse Ox 97.7 F 77 20 116/58 L 97 12/18/23 08:00 12/18/23 08:00 12/18/23 08:00 12/18/23 08:00 12/18/23 08:00 Laboratory Data at Discharge: WBC 5.70 thou/uL (4.3-10.9) 12/18/23 06:26 Hgb 12.3 g/dL (12.0-15.0) 12/18/23 06:26 Hct 36.9 % (36.0-45.0) 12/18/23 06:26 Plt Count 167 thou/uL (152-406) 12/18/23 06:26 Sodium 142 mEq/L (136-145) 12/18/23 06:26 Potassium 3.7 mEq/L (3.5-5.1) 12/18/23 06:26 BUN 11 mg/dL (7-18) 12/18/23 06:26 Creatinine 0.83 mg/dL (0.55-1.02) 12/18/23 06:26 Glucose 104 mg/dL (74-106) 12/18/23 06:26 Home Medications: Dicyclomine [Bentyl*] 10 mg PO Q6H 12/17/23 OXcarbazepine [Trileptal] 300 mg PO TID 12/17/23 Ondansetron [Zofran (Odt)*] 4 mg SL Q8HR PRN 12/17/23 Phentermine HCl 15 mg PO DAILY 12/17/23 Topiramate 25 mg PO BID 12/17/23 Cefdinir [Cefdinir*] 300 mg PO BIDWM 8 Days #16 cap 12/18/23 Diphenhydramine [Benadryl Tab/Cap] 25 mg PO Q6HP PRN 4 Days #16 tab 12/18/23 Hydrocodone 5/APAP 325 [[place] 5/325] 1 tab PO Q4H PRN 3 Days #18 tab 12/18/23 Sumatriptan [Imitrex*] 50 mg PO DAILY PRN 12/18/23 metroNIDAZOLE [Flagyl*] 500 mg PO TID 8 Days #24 tab 12/18/23 New Medications: Diphenhydramine [Benadryl Tab/Cap] 25 mg PO Q6HP PRN 4 Days #16 tab PRN Reason: Itching Cefdinir [Cefdinir*] 300 mg PO BIDWM 8 Days #16 cap metroNIDAZOLE [Flagyl*] 500 mg PO TID 8 Days #24 tab Hydrocodone 5/APAP 325 [[place] 5/325] 1 tab PO Q4H PRN 3 Days #18 tab PRN Reason: Pain Physician Discharge Instructions: Continue ad edwin activity as tolerated. Take home meds as prescribed. Follow up with PCP and dentist within 1 week. Diet: AHA Activity: Ad edwin Followup: Leatha Cosby FNP [Primary Care Provider] - 1-2 Weeks
[2023-12-18] MEDS: CEFDINIR 300 MG CAP PO SCH (10:59)
[2023-12-18] MEDS ORDERED: metroNIDAZOLE 500 MG TABLET PO SCH (14:00)
== END 2023-12-18 12:20 | disposition home or self-care (01) | DRG 603 ==
LOC: ER 20:37 → ERHOLD 22:41 → 2ND 23:31 → ERHOLD 12-17 01:44 → 2ND 12-17 16:44
PROVIDERS: ADMIT Family Medicine; ATTEND Hospitalist
DX: L03.211 Cellulitis of face (principal); F31.9 Bipolar disorder, unspecified; I95.9 Hypotension, unspecified; Z88.1 Allergy status to other antibiotic agents; Z98.51 Tubal ligation status; Z79.899 Other long term (current) drug therapy
CPT/HCPCS: 36415; 80048; 81001; 85025; 87086; 87088; 99285; J0696; J1200; J1650; J7030

== ENCOUNTER 2024-11-25 01:26 | Emergency (ER) | payer OTHER ==
[2024-11-25] MEDS ORDERED: MORPHINE 4 MG/ML SYR ONE (01:53)
[2024-11-25] MEDS ORDERED: ONDANSETRON 4 MG/2 ML VIAL ONE (01:53)
[2024-11-25] MEDS ORDERED: FAMOTIDINE 20 MG/2 ML VIAL IV ONE (01:53)
[2024-11-25] MEDS ORDERED: NA CHLORIDE 0.9% 1,000 ML ONE (01:53)
[2024-11-25 02:27] LABS: ALT/SGPT 23 U/L (13-56); Absolute Lymphocytes (CBC) 1.8 K/uL (0.7-4.9); Albumin 3.7 g/dL (3.4-5.0); Albumin/Globulin Ratio 1.2 (1.1-1.8); Alkaline Phosphatase 65 U/L (45-117); Anion Gap 4.7 mEq/L (5.0-15.0); BUN Blood Urea Nitrogen 9 mg/dL (7-18); Globulin 3.2 g/dL (2.3-3.5); Glucose Level 93 mg/dL (74-106); Hematocrit 38.9 % (36.0-45.0); Hemoglobin 12.8 g/dL (12.0-15.0); Lipase 31 U/L (13-75); MCH 27.7 pg (27.0-35.0); MCHC 32.8 g/dL (32.0-36.0); MCV 84.4 fL (80-100); MPV 9.6 fL (7.6-11.3); Nucleated RBC Absolute Count 0.0 (0-0); Nucleated Red Blood Cells % 0.0 % (0-0); Potassium 3.7 mEq/L (3.5-5.1); RBC Red Blood Cell Count 4.61 M/uL (3.86-4.86); White Blood Count 7.60 thou/uL (4.3-10.9)
[2024-11-25 02:31] LABS: AST/SGOT < 10 U/L (15-37)
[2024-11-25] MEDS ORDERED: DIPHENHYDRAMINE 50 MG/ML VIAL ONE (02:47)
[2024-11-25] MEDS ORDERED: SMZ./TMP. 800/160 MG TABLET ONE (02:47)
[2024-11-25] MEDS ORDERED: FAMOTIDINE 20 MG TAB ONE (02:47)
[2024-11-25] MEDS ORDERED: CLINDAMYCIN 900MG/D5W 900 MG/50 ML IVPB IV ONE (02:47)
--- NOTE | 2024-11-25 02:55 | EDPHYS ---
Physician Documentation [facility] Name: Eneida Lucio Age: 39 yrs Sex: Female : 1985 Arrival Date: 11/25/2024 Time: : Bed 7 Private MD: CAMILLA Physician Brijesh Henriquez HPI: 11/25 02:23 This 39 yrs old Female presents to ER via Ambulatory with complaints of Post adam Surgical Pain. 02:23 The patient presents with abdominal pain at port sites. Onset: The symptoms/episode adam began/occurred 3 day(s) ago. The symptoms do not radiate. Associated signs and symptoms: none. Modifying factors: The symptoms are alleviated by nothing, the symptoms are aggravated by pressure, touching the area. Severity of pain: At its worst the pain was mild in the emergency department the pain is unchanged. The patient has not experienced similar symptoms in the past. 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 - Infectious Disease History:: Denies. - Social history:: Smoking status: Patient denies any tobacco usage or history of. Patient/guardian denies using alcohol, street drugs. - Family history:: not pertinent. ROS: 02:23 Constitutional: Negative for fever, chills, and weight loss, Eyes: Negative for injury, adam pain, redness, and discharge, ENT: Negative for injury, pain, and discharge, Neck: Negative for injury, pain, and swelling, Cardiovascular: Negative for chest pain, palpitations, and edema, Respiratory: Negative for shortness of breath, cough, wheezing, and pleuritic chest pain, Abdomen/GI: Negative for abdominal pain, nausea, vomiting, diarrhea, and constipation, Back: Negative for injury and pain, : Negative for injury, bleeding, discharge, and swelling, MS/Extremity: Negative for injury and deformity, Neuro: Negative for headache, weakness, numbness, tingling, and seizure, Psych: Negative for depression, anxiety, suicide ideation, homicidal ideation, and hallucinations, Allergy/Immunology: Negative for hives, rash, and allergies, Endocrine: Negative for neck swelling, polydipsia, polyuria, polyphagia, and marked weight changes, Hematologic/Lymphatic: Negative for swollen nodes, abnormal bleeding, and unusual bruising, :23 Skin: Positive for erythema, rash, of the abdomen, Exam: :26 Constitutional: This is a well developed, well nourished patient who is awake, alert, adam and in no acute distress. Head/Face: Normocephalic, atraumatic. Eyes: Pupils equal round and reactive to light, extra-ocular motions intact. Lids and lashes normal. Conjunctiva and sclera are non-icteric and not injected. Cornea within normal limits. Periorbital areas with no swelling, redness, or edema. ENT: Nares patent. No nasal discharge, no septal abnormalities noted. Tympanic membranes are normal and external auditory canals are clear. Oropharynx with no redness, swelling, or masses, exudates, or evidence of obstruction, uvula midline. Mucous membranes moist. Neck: Trachea midline, no thyromegaly or masses palpated, and no cervical lymphadenopathy. Supple, full range of motion without nuchal rigidity, or vertebral point tenderness. No Meningismus. Chest/axilla: Normal chest wall appearance and motion. Nontender with no deformity. No lesions are appreciated. Cardiovascular: Regular rate and rhythm with a normal S1 and S2. No gallops, murmurs, or rubs. Normal PMI, no JVD. No pulse deficits. Respiratory: Lungs have equal breath sounds bilaterally, clear to auscultation and percussion. No rales, rhonchi or wheezes noted. No increased work of breathing, no retractions or nasal flaring. Abdomen/GI: Soft, non-tender, with normal bowel sounds. No distension or tympany. No guarding or rebound. No evidence of tenderness throughout. Back: No spinal tenderness. No costovertebral tenderness. Full range of motion. MS/ Extremity: Pulses equal, no cyanosis. Neurovascular intact. Full, normal range of motion., bilateral aka Neuro: Awake and alert, GCS 15, oriented to person, place, time, and situation. Cranial nerves II-XII grossly intact. Motor strength 5/5 in all extremities. Sensory grossly intact. Cerebellar exam normal. Normal gait. Psych: Awake, alert, with orientation to person, place and time. Behavior, mood, and affect are within normal limits. 02:26 Skin: Appearance: Color: normal in color, Temperature: normal temperature, Moisture: normal moisture, petechiae, not noted, ecchymosis, not noted, swelling, is not appreciated, induration, that is mild is noted, located on the abdomen, Vital Signs: 01:47 BP 123 / 78; Pulse 67; Resp 16; Temp 97.8; Pulse Ox 100% ; Weight 88 kg; Height 5 ft. 6 bm8 in. ; Pain 5/10; 02:55 BP 95 / 67; Pulse 63; Resp 18; Temp 97.8; Pulse Ox 100% ; Pain 0/10; bm8 01:47 Body Mass Index 31.31 (88.00 kg, 167.64 cm) bm8 01:47 Pain Scale: Adult bm8 02:55 Pain Scale: Adult bm8 [place] Coma Score: 02:11 Eye Response: spontaneous(4). Motor Response: obeys commands(6). Verbal Response: bm8 oriented(5). Total: 15. 02:55 Eye Response: spontaneous(4). Motor Response: obeys commands(6). Verbal Response: bm8 oriented(5). Total: 15. MDM: 01:44 Medical Screening Exam initiated adam 02:25 Differential diagnosis: bowel obstruction, gastritis, urinary tract infection, skin adam reaction , tape, glue, ports. Data reviewed: vital signs, nurses notes, lab test result(s), CBC, electrolytes, hepatic panel. Consideration of Admission/Observation Escalation of care including admission/observation considered. 11/25 01:50 Order name: CBC with Diff; Complete Time: 02:43 [facility] 11/25 01:50 Order name: CMP; Complete Time: 02:43 [facility] 11/25 01:50 Order name: Lipase; Complete Time: 02:43 [facility] 11/25 01:50 Order name: IV Saline Lock; Complete Time: 02:06 [facility] 11/25 01:50 Order name: Labs collected and sent; Complete Time: 02:06 adam Administered Medications: 02:10 Drug: Famotidine IVP 20 mg IVP once; dilute with 10 mL 0.9% NaCl; give over 2 minutes bm8 Route: IVP; Site: left antecubital; 03:06 Follow up: Response: No adverse reaction bm8 02:10 Drug: Ondansetron IVP 4 mg IVP once; over 2 minutes Route: IVP; Site: left antecubital; bm8 03:06 Follow up: Response: No adverse reaction bm8 02:10 Drug: NS 0.9% IV 1000 ml IV at 1 bolus Per protocol; to be given as a bolus over 60 bm8 minutes Route: IV; Rate: 1 bolus; Site: left antecubital; 03:06 Follow up: Response: No adverse reaction; IV Status: Completed infusion bm8 02:11 Drug: morphine IVP or IV 4 mg IVP once over 4 mins Route: IVP; Infused Over: 4 mins; bm8 Site: left antecubital; 03:06 Follow up: Response: No adverse reaction bm8 02:52 Drug: diphenhydrAMINE IVP 25 mg IVP once Route: IVP; Site: left antecubital; bm8 03:06 Follow up: Response: No adverse reaction bm8 02:52 Drug: Famotidine PO 40 mg PO once Route: PO; bm8 03:05 Follow up: Response: No adverse reaction bm8 02:52 Drug: Clindamycin IVPB 900 mg IVPB once over 30 mins; (mix in 50 mL) Route: IVPB; bm8 Infused Over: 30 mins; Site: left antecubital; 03:19 Follow up: Response: No adverse reaction; IV Status: Completed infusion bm8 02:52 Drug: Trimethoprim-Sulfamethoxazole PO (160 mg-800 mg (DS) 1 tablet PO once Route: PO; bm8 03:05 Follow up: Response: No adverse reaction bm8 Disposition Summary: 11/25/24 02:54 Discharge Ordered Notes: Location: Home adam Problem: new adam Symptoms: have improved adam Condition: Stable adam Diagnosis - Cellulitis of abdominal wall - at port sites adam - Impetigo adam - Allergic contact dermatitis due to adhesives adam - Allergic contact dermatitis due to other agents adam Followup: adam - With: Private Physician - When: 2 - 3 days - Reason: Recheck today's complaints, Continuance of care, Re-evaluation by your physician Followup: [facility] - With: Ken Mattson MD - When: 2 - 3 days - Reason: Recheck today's complaints, Re-evaluation by your physician Discharge Instructions: - Discharge Summary Sheet [facility] - Cellulitis, Adult adam - Contact Dermatitis adam - Contact Dermatitis, [id number] [facility] - Impetigo, Adult [facility] Forms: - Medication Reconciliation Form [facility] - Antibiotic Education [facility] - Prescription Opioid Use [facility] - Patient Portal Instructions [facility] - Leadership Thank You Letter [facility] Prescriptions: - Centany 2 % Topical ointment - apply 1 application TOPICAL route 3 times per day; 45 gram; Refills: 0, Product [facility] Selection Permitted - Benadryl 25 mg Oral capsule - take 1 capsule ORAL route every 6 hours As needed; 36 tablet; Refills: 0, [facility] Product Selection Permitted - Clindamycin HCl 300 mg Oral capsule - take 1 capsule ORAL route every 6 hours for 7 days; 28 capsule; Refills: 0, [facility] Product Selection Permitted - Pepcid 20 mg Oral tablet - take 1 tablet ORAL route every 12 hours for 21 days; 42 tablet; Refills: 0, [facility] Product Selection Permitted - Bactrim DS 800-160 mg Oral tablet - take 1 tablet ORAL route every 12 hours for 7 days; 14 tablet; Refills: 0, [facility] Product Selection Permitted Signatures: Dispatcher [employer] Brijesh Ramirez MD MD cha McDonald, Brad, RN RN bm8 Corrections: (The following items were deleted from the chart) 02:49 01:51 Abdomen Pelvis W [id number] ordered. JANELLE LUIS
--- NOTE | 2024-11-25 02:55 | ER ---
Nurse's Notes [facility] Name: Eneida Lucio Age: 39 yrs Sex: Female : 1985 Arrival Date: 11/25/2024 Time: 01:26 Bed 7 Private MD: Diagnosis: Cellulitis of abdominal wall-at port sites;Impetigo;Allergic contact dermatitis due to adhesives;Allergic contact dermatitis due to other agents Presentation: 11/25 01:47 Chief complaint: Patient states: I had a Laine preformed here by Dr. Mattson on bm8 Sunday. this morning my stomach became red at the incision sites after the steri strips came off and then they started leaking as well. I worried they might be infected. 01:47 Coronavirus screen: At this time, the client does not indicate any symptoms associated bm8 with coronavirus-19. Ebola Screen: Patient negative for fever greater than or equal to 101.5 degrees Fahrenheit, and additional compatible Ebola Virus Disease symptoms Patient denies exposure to infectious person. Patient denies travel to an Ebola-affected area in the 21 days before illness onset. No symptoms or risks identified at this time. Initial Sepsis Screen: Does the patient meet any 2 criteria? No. Patient's initial sepsis screen is negative. Does the patient have a suspected source of infection? No. Patient's initial sepsis screen is negative. Risk Assessment: Do you want to hurt yourself or someone else? Patient reports no desire to harm self or others. Onset of symptoms was November 24, 2024 at 08:00. 01:47 Method Of Arrival: Ambulatory bm8 01:47 Acuity: FELIX 3 bm8 Triage Assessment: 01:57 General: Appears in no apparent distress. comfortable, Behavior is calm, cooperative, bm8 appropriate for age. Pain: Complains of pain in abdomen Pain currently is 5 out of 10 on a pain scale. EENT: No deficits noted. No signs and/or symptoms were reported regarding the EENT system. Neuro: No deficits noted. Cardiovascular: No deficits noted. Respiratory: No deficits noted. GI: Abdomen is round distended, bruised on umbilical area, right upper quadrant and right lower quadrant Bowel sounds present X 4 quads. Abdomen is tender to palpation in umbilical area, right upper quadrant and right lower quadrant Reports lower abdominal pain, upper abdominal pain, Pain is 5 out of 10 on a pain scale. : No signs and/or symptoms were reported regarding the genitourinary system. Derm: redness and serous fluid leakage around incisions. Musculoskeletal: No signs and/or symptoms reported regarding the musculoskeletal system. 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 - Infectious Disease History:: Denies. - Social history:: Smoking status: Patient denies any tobacco usage or history of. Patient/guardian denies using alcohol, street drugs. - Family history:: not pertinent. Screenin:11 [facility] ED Fall Risk Assessment (Adult) History of falling in the last 3 months, bm8 including since admission No falls in past 3 months (0 pts) Confusion or Disorientation No (0 pts) Intoxicated or Sedated No (0 pts) Impaired Gait No (0 pts) Mobility Assist Device Used No (0 pt) Altered Elimination No (0 pt) Score/Fall Risk Level 0 - 2 = Low Risk Oriented to surroundings, Maintained a safe environment, Educated pt \T\ family on fall prevention, incl call for assistance when getting out of bed, Assessed \T\ reinforced patient's understanding of fall precautions, Hourly rounding (assess needs \T\ fall precautionary measures) done, Used ambulatory aids as needed (educated on \T\ assisted with), Used gait belt as appropriate. Abuse screen: Denies threats or abuse. Nutritional screening: No deficits noted. Tuberculosis screening: No symptoms or risk factors identified. Assessment: 02:01 Reassessment: see triage assessment. bm8 02:55 Reassessment: Patient appears in no apparent distress at this time. Patient and/or bm8 family updated on plan of care and expected duration. Pain level reassessed. Patient is alert, oriented x 3, equal unlabored respirations, skin warm/dry/pink. awaiting medication administration Patient states feeling better. Patient states symptoms have improved. Vital Signs: 01:47 BP 123 / 78; Pulse 67; Resp 16; Temp 97.8; Pulse Ox 100% ; Weight 88 kg; Height 5 ft. 6 bm8 in. ; Pain 5/10; 02:55 BP 95 / 67; Pulse 63; Resp 18; Temp 97.8; Pulse Ox 100% ; Pain 0/10; bm8 01:47 Body Mass Index 31.31 (88.00 kg, 167.64 cm) bm8 01:47 Pain Scale: Adult bm8 02:55 Pain Scale: Adult bm8 [place] Coma Score: 02:11 Eye Response: spontaneous(4). Motor Response: obeys commands(6). Verbal Response: bm8 oriented(5). Total: 15. 02:55 Eye Response: spontaneous(4). Motor Response: obeys commands(6). Verbal Response: bm8 oriented(5). Total: 15. ED Course: 01:31 Patient arrived in ED. [email or web address] 01:44 Brijesh Henriquez MD is Attending Physician. adam 01:51 Torey Lema, RN is Primary Nurse. ss12 01:57 Triage completed. bm8 01:57 Arm band placed on right wrist. bm8 02:04 Inserted saline lock: 20 gauge in left antecubital area, using aseptic technique. Blood oe collected. Flushed with 10 mL NS. 02:06 CBC with Diff Sent. oe 02:06 CMP Sent. oe 02:06 Lipase Sent. oe 02:11 Patient has correct armband on for positive identification. Bed in low position. Call bm8 light in reach. Side rails up X 1. Adult w/ patient. Client placed on continuous cardiac and pulse oximetry monitoring. NIBP monitoring applied. Pulse ox on. NIBP on. Door closed. Noise minimized. Warm blanket given. Pillow given. Verbal reassurance given. Head of bed elevated. 02:11 No provider procedures requiring assistance completed. Initial lab(s) drawn, by ED 8 staff, sent to lab. Patient maintains SpO2 saturation greater than 95% on room air. 02:54 Ken Mattson MD is Referral Physician. [facility] [place] 03:18 Provided Education on: post er care. bm8 03:18 IV discontinued, intact, bleeding controlled, No redness/swelling at site. Pressure bm8 dressing applied. Administered Medications: 02:10 Drug: Famotidine IVP 20 mg IVP once; dilute with 10 mL 0.9% NaCl; give over 2 minutes bm8 Route: IVP; Site: left antecubital; 03:06 Follow up: Response: No adverse reaction bm8 02:10 Drug: Ondansetron IVP 4 mg IVP once; over 2 minutes Route: IVP; Site: left antecubital; bm8 03:06 Follow up: Response: No adverse reaction bm8 02:10 Drug: NS 0.9% IV 1000 ml IV at 1 bolus Per protocol; to be given as a bolus over 60 bm8 minutes Route: IV; Rate: 1 bolus; Site: left antecubital; 03:06 Follow up: Response: No adverse reaction; IV Status: Completed infusion bm8 02:11 Drug: morphine IVP or IV 4 mg IVP once over 4 mins Route: IVP; Infused Over: 4 mins; bm8 Site: left antecubital; 03:06 Follow up: Response: No adverse reaction bm8 02:52 Drug: diphenhydrAMINE IVP 25 mg IVP once Route: IVP; Site: left antecubital; bm8 03:06 Follow up: Response: No adverse reaction bm8 02:52 Drug: Famotidine PO 40 mg PO once Route: PO; bm8 03:05 Follow up: Response: No adverse reaction bm8 02:52 Drug: Clindamycin IVPB 900 mg IVPB once over 30 mins; (mix in 50 mL) Route: IVPB; bm8 Infused Over: 30 mins; Site: left antecubital; 03:19 Follow up: Response: No adverse reaction; IV Status: Completed infusion bm8 02:52 Drug: Trimethoprim-Sulfamethoxazole PO (160 mg-800 mg (DS) 1 tablet PO once Route: PO; bm8 03:05 Follow up: Response: No adverse reaction bm8 Medication: 02:11 VIS not applicable for this client. bm8 Outcome: 02:54 Discharge ordered by MD. medina 03:18 Discharged to home ambulatory, with family, bm8 03:18 Condition: stable 03:18 Discharge instructions given to patient, family, Instructed on discharge instructions, follow up and referral plans. no drinking with medication, no driving heavy equipment, medication usage, safety practices, Demonstrated understanding of instructions, follow-up care, medications, Prescriptions given X 5 03:19 Patient left the ED. bm8 Signatures: Brijesh Henriquez MD MD cha Espinosa, [place] oe Jeffries, Jennifer [email or web address] McDonald, Brad, RN RN bm8 Torey Lema RN RN ss12
[2024-11-25 03:33] VITALS: TEMP 97.8; O2SAT 100
[2024-11-25 03:35] VITALS: BP 95/67
== END 2024-11-25 03:19 | disposition home or self-care (01) ==
LOC: ER 01:26
DX: L03.311 Cellulitis of abdominal wall (principal); Z98.890 Other specified postprocedural states; L01.00 Impetigo, unspecified; L23.1 Allergic contact dermatitis due to adhesives; L23.89 Allergic contact dermatitis due to other agents; Z88.1 Allergy status to other antibiotic agents
CPT/HCPCS: 96365; 96361; 85025; 36415; 83690; 80053; 96375; 99284; J1200; J2405; J7030